=== PATIENT | female | born 1975 | race African-American/Black ===

== ENCOUNTER 2017-09-29 18:52 | Emergency (ER) | payer OTHER ==
--- NOTE | 2017-09-29 19:04 | PDOC ---
Rapid Medical Evaluation Medical Evaluation: 09/29/17 19:00 Pt presents to the ED: bleeding from either vagina or urethra. Stage IV cancer with mets, weak, dizzy, on chemo, hx rt Pt on brief exam: vss, Pt ordered for: cbc, comp , type and screen, ua Pt to proceed to the ED <Karla Miles - Last Filed: 09/29/17 19:00> Medical Evaluation: Allergies Allergy/AdvReac Type Severity Reaction Status Date / Time No Known Allergies Allergy Verified 09/29/17 19:01 Vital Signs Temp Pulse Resp BP Pulse Ox 98.6 F 87 19 131/89 99 09/29/17 19:01 09/29/17 19:01 09/29/17 19:01 09/29/17 19:01 09/29/17 19:01 <Maurisio Kilgore - Last Filed: 09/29/17 23:35> Time Seen by Provider: 09/29/17 18:59 Discharge Disposition <JdKarla - Last Filed: 09/29/17 19:00> - Discharge Dispostion Admit: No <Maurisio Kilgore - Last Filed: 09/29/17 23:35> - Diagnosis Bleeding UTI (urinary tract infection) Qualifiers: Urinary tract infection type: site unspecified Hematuria presence: with hematuria Qualified Code(s): N39.0 - Urinary tract infection, site not specified - Discharge Dispostion Disposition: HOME Condition at time of disposition: Improved - Prescriptions Prescriptions: Nitrofurantoin Monohyd/M-Cryst [Macrobid -] 100 mg PO BID #14 capsule Phenazopyridine HCl [Pyridium -] 200 mg PO PC #12 tablet - Referrals Referrals: Luciano Merida MD [Primary Care Provider] - - Patient Instructions Printed Discharge Instructions: DI for Urinary Tract Infection (UTI), DI for Hematuria Additional Instructions: Please return to the ER if you experience concerning or worsening symptoms including worsening weakness, chest pain, or difficulty breathing. Your lab results were normal here in the ER. Your urine results should that you have a urinary tract infection. We have sent a prescription for antibiotics to your pharmacy which you should take as directed. We have discussed with your oncologist's team who are aware of your visit to our ER. It is important that you keep your appointment with your urologist on Friday to discuss further management of your symptoms.
[2017-09-29 19:06] VITALS: BMI 34.2
[2017-09-29 20:18] LABS: BASO % 0.5 % (0-2.0); EOS % 1.4 % (0-4.5); HEMATOCRIT 38.9 % (32.4-45.2); HEMOGLOBIN 12.7 GM/dL (10.7-15.3); LYMPH % 30.4 % (8-40); MCH 28.3 pg (25.7-33.7); MCHC 32.8 g/dl (32.0-36.0); MEAN CELL VOLUME 86.3 fl (80-96); MEAN PLT VOLUME 8.2 fl (7.5-11.1); MONO % 6.6 % (3.8-10.2); NEUT % 61.1 % (42.8-82.8); PLATELET COUNT 247 K/MM3 (134-434); RDW 14.5 % (11.6-15.6); WHITE BLOOD COUNT 8.2 K/mm3 (4.0-10.0)
[2017-09-29 21:35] LABS: ALBUMIN 4.1 g/dl (3.4-5.0); ANION GAP 4 (8-16); BILIRUBIN,TOTAL 0.6 mg/dL (0.2-1.0); CALCIUM 9.3 mg/dL (8.5-10.1); CHLORIDE 106 mmol/L (98-107); CO2 31 mmol/L (21-32); CREATININE 0.8 mg/dL (0.55-1.02); GLUCOSE,RANDOM 95 mg/dL (74-106); MAGNESIUM 2.3 mg/dL (1.8-2.4); POTASSIUM 3.7 mmol/L (3.5-5.1); SGOT/AST 25 U/L (15-37); SGPT/ALT 24 U/L (12-78); SODIUM 141 mmol/L (136-145)
[2017-09-29 21:38] LABS: ALK PHOS 39 U/L (45-117); BLOOD UREA NITROGEN 16 mg/dL (7-18); TOT PROT 7.6 g/dl (6.4-8.2)
--- NOTE | 2017-09-29 21:51 | PDOC ---
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 The patient reports a 2 month history of hematuria. She states that she normally follows at [facility] with her oncologist Dr. Ramirez. She is currently not on any chemotherapy and is scheduled to restart soon. She states that she has been treated for a UTI on an outpatient basis, but began passing large amount of blood and a sensation that she needs to pass a large clot and is concerned that her bleeding would worsen prompting her presentation to the ED for evaluation. She notes that she has a follow up appointment scheduled with her oncologist in 2 days. She denies fevers, chills, SOB, chest pain, nausea, vomiting, or changes with bowel movements. <Maurisio Kilgore - Last Filed: 09/29/17 23:30> - General Chief Complaint: Hematuria Stated Complaint: HEMATURIA Time Seen by Provider: 09/29/17 18:59 Past History <Olivia Gutierrez - Last Filed: 09/29/17 23:01> - Suicide/Smoking/Psychosocial Hx Smoking History: Never smoked <Maurisio Kilgore - Last Filed: 09/29/17 23:30> - Past Medical History Allergies/Adverse Reactions: Allergies Allergy/AdvReac Type Severity Reaction Status Date / Time No Known Allergies Allergy Verified 09/29/17 19:01 Home Medications: Ambulatory Orders Nitrofurantoin Monohyd/M-Cryst [Macrobid -] 100 mg PO BID #14 capsule 09/29/17 Phenazopyridine HCl [Pyridium -] 200 mg PO PC #12 tablet 09/29/17 Review of Systems - Review of Systems Comments:: 09/29/17 22:26 Constitutional: No fevers, chills, fatigue, malaise HEENT: No Rhinorrhea, nasal congestion, visual changes Cardiovascular: No chest pain, syncope, palpitations, lightheadedness Respiratory: No Cough, SOB, Hemoptysis, Gastrointestinal: Suprapubic fullness. No Nausea, Vomiting, Constipation, Diarrhea, Melena Genitourinary: Hesitancy, Urgency, Hematuria. No Dysuria, Frequency, Flank pain Musculoskeletal: No Myalgia, arthralgia Skin: No rashes, bruising, pallor Neurologic: No Headache, Dizziness, Numbness, Weakness, or Tingling Psychiatric: No Hallucinations. No SI or HI <Maurisio Kilgore - Last Filed: 09/29/17 23:30> *Physical Exam - Vital Signs Last Vital Signs Temp Pulse Resp BP Pulse Ox 98.6 F 87 19 131/89 99 09/29/17 19:01 09/29/17 19:01 09/29/17 19:01 09/29/17 19:01 09/29/17 19:01 <Olivia Gutierrez - Last Filed: 09/29/17 23:01> - Vital Signs Last Vital Signs Temp Pulse Resp BP Pulse Ox 98.6 F 87 19 131/89 99 09/29/17 19:01 09/29/17 19:01 09/29/17 19:01 09/29/17 19:01 09/29/17 19:01 - Physical Exam Comments: 09/29/17 22:27 General Appearance: Nourished. No Apparent Distress HEENT: EOMI, MATEO. No Pharyngeal Erythema, Tonsillar Exudate, Tonsillar Erythema Neck: No Cervical Lymphadenopathy Respiratory/Chest: Lungs Clear, Normal Breath Sounds. No Crackles, Rales, Rhonchi, Wheezing Cardiovascular: Regular Rhythm, Regular Rate. No Murmur, Gallops, Rubs Gastrointestinal/Abdominal: Normal Bowel Sounds, Soft. No Guarding, Rebound, Tenderness Genital Exam: Normal external exam. Cervical OS closed. No blood in the vaginal vault. Musculoskeletal: No CVA Tenderness Extremity: Normal Capillary Refill Integumentary: Normal Color, Dry, Warm Neurologic: Fully Oriented, Alert, Normal Mood/Affect, Normal Response, <Maurisio Kilgore - Last Filed: 09/29/17 23:30> ED Treatment Course - LABORATORY CBC & Chemistry Diagram: 09/29/17 20:00 09/29/17 20:00 - ADDITIONAL ORDERS Additional order review: Laboratory Results 09/29/17 09/29/17 09/29/17 20:06 20:00 20:00 Sodium 141 Potassium 3.7 Chloride 106 Carbon Dioxide 31 Anion Gap 4 L BUN 16 Creatinine 0.8 Creat Clearance w eGFR > 60 Random Glucose 95 Calcium 9.3 Magnesium 2.3 Total Bilirubin 0.6 AST 25 ALT 24 Alkaline Phosphatase 39 L Total Protein 7.6 Albumin 4.1 Urine Color Brown Urine Appearance Cloudy Urine pH 5.0 Ur Specific Busy 1.026 Urine Protein 2+ H Urine Glucose (UA) 1+ H Urine Ketones 1+ H Urine Blood 3+ H Urine Nitrite Negative Urine Bilirubin 2.0 Urine Urobilinogen 4.0 e.u/dl H Ur Leukocyte Esterase 1+ H Blood Type A POSITIVE Antibody Screen Negative 09/29/17 20:00 RBC 4.50 MCV 86.3 MCHC 32.8 RDW 14.5 MPV 8.2 Neutrophils % 61.1 Lymphocytes % 30.4 Monocytes % 6.6 Eosinophils % 1.4 Basophils % 0.5 - Consult/PCP Case Discussed with Personal Care Physician Not on Staff:: Spoke to Dr. Odom (sp?)who says he will let Dr. Abiel Ramirez know about everything that is going on. Dr Ramirez will follow-up tmrw. <Olivia Gutierrez - Last Filed: 09/29/17 23:01> - LABORATORY CBC & Chemistry Diagram: 09/29/17 20:00 09/29/17 20:00 - ADDITIONAL ORDERS Additional order review: Laboratory Results 09/29/17 20:00 Sodium 141 Potassium 3.7 Chloride 106 Carbon Dioxide 31 Anion Gap 4 L BUN 16 Creatinine 0.8 Creat Clearance w eGFR > 60 Random Glucose 95 Calcium 9.3 Magnesium 2.3 Total Bilirubin 0.6 AST 25 ALT 24 Alkaline Phosphatase 39 L Total Protein 7.6 Albumin 4.1 09/29/17 20:00 RBC 4.50 MCV 86.3 MCHC 32.8 RDW 14.5 MPV 8.2 Neutrophils % 61.1 Lymphocytes % 30.4 Monocytes % 6.6 Eosinophils % 1.4 Basophils % 0.5 <Maurisio Kilgore - Last Filed: 09/29/17 23:30> Medical Decision Making - Medical Decision Making 09/29/17 22:27 The patient is a 42 year old female with a 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 Given the chronicity of the patient's symptoms, it is likely her current complaints are related to her chronic hematuria. However, we will obtain a cbc, cmp, ua to evaluate further. We will continue to monitor and reassess. 09/29/17 23:28 cbc, cmp are unremarkable. UA demonstrates a urinary tract infection. The patient has recently been on bactrium and cipro without resolution in her symptoms. We are comfortable discharging the patient on Macrobid with urology follow up in 2 days. We discussed the results and the plan with the patient who voiced understanding and is agreeable with the plan. <Maurisio Kilgore - Last Filed: 09/29/17 23:30> *DC/Admit/Observation/Transfer <Olivia Gutierrez - Last Filed: 09/29/17 23:01> <Maurisio Kilgore - Last Filed: 09/29/17 23:30> Diagnosis at time of Disposition: Bleeding UTI (urinary tract infection) Qualifiers: Urinary tract infection type: site unspecified Hematuria presence: with hematuria Qualified Code(s): N39.0 - Urinary tract infection, site not specified - Prescriptions Prescriptions: Nitrofurantoin Monohyd/M-Cryst [Macrobid -] 100 mg PO BID #14 capsule Phenazopyridine HCl [Pyridium -] 200 mg PO PC #12 tablet - Referrals Referrals: Luciano Merida MD [Primary Care Provider] - - Patient Instructions Printed Discharge Instructions: DI for Urinary Tract Infection (UTI), DI for Hematuria Additional Instructions: Please return to the ER if you experience concerning or worsening symptoms including worsening weakness, chest pain, or difficulty breathing. Your lab results were normal here in the ER. Your urine results should that you have a urinary tract infection. We have sent a prescription for antibiotics to your pharmacy which you should take as directed. We have discussed with your oncologist's team who are aware of your visit to our ER. It is important that you keep your appointment with your urologist on Friday to discuss further management of your symptoms. - Post Discharge Activity
[2017-09-29 22:45] LABS: URINE APPEARANCE CLOUDY; URINE BLOOD 3+ (NEGATIVE); URINE GLUCOSE (UA) 1+ (NEGATIVE); URINE KETONE 1+ (NEGATIVE); URINE NITRITE NEGATIVE (NEGATIVE); URINE UROBILINOGEN 4.0 E.U/dl mg/dL (0.2-1.0)
[2017-09-29 22:53] LABS: URINE LEUK ESTERASE 1+ (NEGATIVE); URINE PROTEIN 2+ (NEGATIVE)
[2017-09-29 22:55] LABS: URINE COLOR BROWN
[2017-09-29 23:11] LABS: EPI CELLS RARE /HPF (FEW); URINE BACTERIA MODERATE /hpf (NONE SEEN)
[2017-09-29] MEDS ORDERED: PHENAZOPYRIDINE HCL 100 MG TABLET (FP) PO ONE (23:26)
[2017-09-29] MEDS ORDERED: PHENAZOPYRIDINE HCL 100 MG TABLET (FP) ONE (23:29)
[2017-09-29] MEDS ORDERED: NITROFURANTOIN MACROCRYSTAL 50 MG CAPSULE (FP) ONE (23:29)
--- NOTE | 2017-09-29 23:29 | PDOC ---
Attending Attestation - Resident Resident Name: Maurisio Kilgore - ED Attending Attestation I have performed the following: I have examined & evaluated the patient, The case was reviewed & discussed with the resident, I agree w/resident's findings & plan, Exceptions are as noted - HPI HPI: 09/29/17 23:28 42 yo female with h/o gyncological cancer p/w hematuria pt had been tx for UTI on Sep 20 and took bactrim but still has dysuria and increased frequency - Physicial Exam PE: 09/29/17 23:29 wnwd 42 yo female p/w dysrua ,hematuria head ncat neck supple lungs cta b/l cvs [id number] abd no rebound,no guarding pelvic no vaginal bleeding,os closed ext no pitting edema neuro axox3 ,ambulatory psych appropriate - Medical Decision Making 09/29/17 23:31 spoke w oncologist covering for Dr Ramirez , Dr Paz and the plan is for the pt to be seen tomorrow or Friday -she does already have a urology appt -pt will be started on macrobid since the cipro and bactrim failed IMP hemorrhagic cystitis
[2017-09-29] MEDS ORDERED: NITROFURANTOIN MACROCRYSTAL 50 MG CAPSULE (FP) PO SCH (23:30)
[2017-09-29 23:39] VITALS: BP 124/75; PULSE 95; TEMP 97.4
--- NOTE | 2017-10-02 07:32 | PDOC ---
Patient Follow-up (Call Back) - Post ED Follow - Up Condition at time of discharge: Improved Disposition at time of original discharge: HOME Reason for Call Back: Abnwl. Microbiology (Patient with positive urine culture, On macrobid, awaiting sensitivity.)
== END 2017-09-29 23:39 | disposition home or self-care (01) ==
LOC: JER 18:52
DX: N39.0 Urinary tract infection, site not specified (principal); R31.9 Hematuria, unspecified
CPT/HCPCS: 36415; 80053; 81003; 81015; 83735; 85025; 86850; 86900; 86901; 87086; 87186; 99281-25